=== PATIENT | female | born 1955 | race Caucasian/White ===

== ENCOUNTER 2016-10-23 19:46 | Inpatient (IN) | payer BC ==
[~2016-10-23] VITALS: Ht 172.7 cm; Wt 97.6 kg
--- NOTE | ~2016-10-23 | HP ---
ADMIT: 10/23/2016 RM/LOC: 625 [facility] MR#: [id number] [address] [address] RUI ROBERTJEANNA [address] [facility] [place] [address] History and Physical SEX: F AGE: 61 : 1955 DATE OF SERVICE: CHIEF COMPLAINT: Abdominal pain. HISTORY OF PRESENT ILLNESS: Jeanna is a pleasant 61-year-old female, who normally follows with Julia Monge PA-C in our clinic, presented to the Emergency Department with the above complaints. The patient states that she was walking in the mall when she started having epigastric and lower chest pain. In the Emergency Department for further evaluation, where she was found to have pancreatitis. Lipase greater than 6000. The patient has never had an episode of this before. She denies any alcohol use. No previous history of gallbladder disease. She was started on fluids n.p.o. and pain control. She states pain is better, but still there. No shortness of breath. No other associated symptoms. No fevers or chills. No other complaints this morning. PAST MEDICAL HISTORY: Includes: 1. History of colon polyps. 2. Hyperlipidemia. 3. Hypothyroidism. 4. Migraine headaches. 5. History of malignant breast cancer in 1995. 6. Ductal carcinoma in situ of the left breast in 2010. 7. Infiltrating ductal carcinoma of the left breast with bilateral mastectomy and reconstruction. 8. Osteopenia. 9. Dyslipidemia. OBSTETRICAL HISTORY: She is a 2, para 2. PAST SURGICAL HISTORY: 1. Tonsillectomy. 2. Bilateral breast mastectomy. 3. Hysterectomy with oophorectomy. MEDICATIONS: Please refer to hospital records. She is on TriCor. ALLERGIES: TO ADVIL, STATINS, AND SULFAMETHOXAZOLE. SOCIAL HISTORY: The patient lives with spouse. Nonsmoker and nondrinker. No alcohol. 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 FAMILY HISTORY: Paternal with heart disease and history of acute [place]. Mom with coronary artery disease and osteoarthritis. History of breast cancer. History of colon cancer. REVIEW OF SYSTEMS: A 10-point review of systems was obtained per HPI, otherwise negative. PHYSICAL EXAMINATION: VITAL SIGNS: Blood pressure 127/59, pulse 56, ADMIT: 10/23/2016 RM/LOC: 625 [facility] MR#: [id number] [address] [address] RUI ROBERTJEANNA Isai [address] [place] [address] History and Physical SEX: F AGE: 61 : 1955 respirations 16, temperature 97.9, and 95% on room air. GENERAL: Alert and oriented x3. Does not appear in acute distress. HEENT: Pupils are equal, round, and reactive. Extraocular muscles intact. Throat clear. Trachea midline. HEART: Regular rate and rhythm. No murmurs, rubs, gallops. LUNGS: Clear to auscultation bilaterally. No wheezes or crackles. ABDOMEN: Mild abdominal tenderness in the epigastric area. Otherwise, no rebound or guarding. EXTREMITIES: Trace edema. LABORATORY DATA: Lab show normal CBC. Elevated AST and ALT of 182 and 130 respectively. Lipase now 5651. Triglycerides, normal range. A1c was 5.4. Urine culture negative. Abdomen and pelvis CT did show cholelithiasis, granulomatous disease, diverticulosis, right renal cyst. ASSESSMENT: This is a 61-year-old female with: 1. Acute pancreatitis, possibly secondary to gallstones versus TriCor. 2. Cholelithiasis. 3. Migraine headaches. 4. Dyslipidemia. 5. Obesity. 6. History of breast cancer. 7. Transaminitis. PLAN: We will admit for further workup and management. Supportive cares. N.p.o. SHED BOSS. Fluids. TriCor. Continue watch lipase and advance as tolerated. Likely home by Wednesday, I would think. The patient was in agreement with this plan. Jermaine Sevilla MD/ mansoor JOB #: [id number] CC: Jermaine Sevilla, Attending Physician Julia Monge, Family Physician
[2016-10-29] MEDS ORDERED: TYLENOL DPS325 MG PO (17:49)
[2016-10-29] MEDS ORDERED: NORCO 5-325 TA1 EACH PO (17:49)
[2016-10-29] MEDS ORDERED: INDERAL-DPS40 MG PO (17:49)
[2016-10-29] MEDS ORDERED: EFFEXOR XR75 MG PO (17:49)
[2016-10-29] MEDS ORDERED: VIACTIV SOFT C1 EACH PO (17:50)
[2016-10-29] MEDS ORDERED: FEMARA DPS2.5 MG PO (17:50)
[2016-10-29] MEDS ORDERED: AMERGE2.5 MG PO (17:50)
[2016-10-29] MEDS ORDERED: IMITREX DPS50 MG PO (17:51)
[2016-10-29] MEDS ORDERED: ZYRTEC DPS10 MG PO (17:51)
[2016-10-29] MEDS ORDERED: ZOFRAN4 MG PO (17:52)
--- NOTE | 2016-11-01 20:44 | CO ---
ADMIT: 10/23/2016 RM/LOC: 625 [facility] MR#: [id number] [address] [address] RUI ROBERTJEANNA [address] [place] [address] Consultation SEX: F AGE: 61 : 1955 DATE OF CONSULTATION: 10/26/2016 ATTENDING PHYSICIAN: Jermaine Sevilla CONSULTING PHYSICIAN: Zackary Mitchell MD HISTORY: This is a 61-year-old female, seen in surgical consultation for Dr. Sevilla for pancreatitis. Jeanna , Wednesday night, had the abrupt onset of epigastric pain radiating into her back, which prompted a visit to the ER. She was found to have pancreatitis with a lipase level greater than 6000. She also had mild AST and ALT elevations. She was admitted and had gradual improvement in her epigastric pain until yesterday when her diet was advanced. At that point, she did have some mild nausea. Today, her enzymes did show a bump, however, the lipase again returning to the over 2000 range. She today reports her pain is some there but mostly resolved now. Ultrasound performed did demonstrate cholelithiasis and a common bile duct of 8 mm. PAST MEDICAL HISTORY: Colon polyps, hyperlipidemia, breast cancer, hypothyroidism, migraine headaches, and osteopenia. PAST SURGICAL HISTORY: Tonsillectomy, bilateral mastectomy, hysterectomy with oophorectomy. MEDICATIONS: 1. TriCor. 2. Propranolol. 3. Effexor. 4. Viactiv. 5. Femara. 6. Amerge. 7. Imitrex. 8. Zyrtec. ALLERGIES: ADVIL, STATINS, AND SULFAMETHOXAZOLE. FAMILY HISTORY: Significant for heart disease, breast cancer, and colon cancer. REVIEW OF SYSTEMS: A 10-point review of systems was performed. Abdominal symptoms mentioned in the history of present illness are the only recent change, and the remainder of these systems was negative. PHYSICAL EXAMINATION: GENERAL: Jeanna is alert, oriented, and in no acute distress. VITAL SIGNS: She is afebrile currently, and her vital signs are stable. NEUROLOGIC: Cranial nerves are grossly intact. EYES: Sclerae are anicteric. ADMIT: 10/23/2016 RM/LOC: 625 [facility] MR#: [id number] [address] [address] RUI ROBERTJEANNA [address] [place] [address] Consultation SEX: F AGE: 61 : 1955 NECK: Supple. Trachea is midline. LUNGS: Clear bilaterally. HEART: Regular rate and rhythm. ABDOMEN: Mildly tender in the epigastrium without peritoneal sign or palpable mass. EXTREMITIES: Neurovascularly intact x4. IMPRESSION: Pancreatitis, likely gallstone in origin. PLAN: I had a detailed discussion with Jeanna today regarding gallstone pancreatitis and appropriate management. I did discuss repeating her laboratory studies tomorrow, and if those are improving and if clinically she is symptomatically remains improved, we would plan to tentatively proceed with laparoscopic cholecystectomy with intraoperative cholangiogram. I discussed the risks of that surgery with Jeanna including bleeding, infection, damage to intraabdominal organs, including the biliary tree, conversion to an open procedure, and findings intraoperatively of common duct stone necessitating additional treatment and including possible transfer for ERCP or the need for choledochoscopy and stone retrieval. She understands all of these things as well as the potential, but a partner of mine will be doing the surgery if it does proceed tomorrow. She agrees with that plan. If her laboratory studies are more elevated tomorrow, we would contemplate transfer for preoperative ERCP. Zackary Mitchell MD/ mansoor JOB #: [id number] CC: Jermaine Sevilla, Attending Physician Julia Monge, Family Physician
--- NOTE | 2016-11-03 13:27 | OR ---
ADMIT: 10/23/2016 RM/LOC: 625 [facility] MR#: [id number] [address] [address] RUI DELGADORRAISA [address] [place] [address] Operative/Delivery Room Report SEX: F AGE: 61 : 1955 SURGERY DATE: 10/27/2016 SURGEON: Harrison Bustamante MD PREOPERATIVE DIAGNOSES: 1. Gallstone pancreatitis. 2. Cholecystitis. 3. Cholelithiasis. POSTOPERATIVE DIAGNOSES: 1. Gallstone pancreatitis. 2. Cholecystitis. 3. Cholelithiasis. FINAL PATHOLOGY: Pending. PROCEDURE: Laparoscopic cholecystectomy with intraoperative cholangiogram. RESEARCH AND EVALUATION ANALYST: Emilee Zhao APRN, NP, who was necessary for adequate exposure, retraction, and completion of this case. ESTIMATED BLOOD LOSS: 25 mL or less. ANESTHESIA: Endotracheal tube anesthesia. INDICATION FOR PROCEDURE: Please see H and P. PROCEDURE IN DETAIL: After the risks, benefits, possible complications, and alternatives had been explained and informed consent had been obtained, the patient was taken back to the operating room, underwent general endotracheal tube anesthesia, and the surgical field was prepped and draped in sterile manner. An infraumbilical incision was made, Veress needle was inserted, the abdomen was insufflated with CO2. Once there was adequate insufflation, a 5 mm port was placed, camera was placed at this port site under direct visualization and placed a 10 mm epigastric, two 5 mm right upper quadrant ports. The gallbladder had a few adhesions, slowly cleaned down, dissected the cystic duct coming directly off the gallbladder, appeared rather long, placed a clip on the gallbladder side, opened the cystic duct, introduced a cholangiogram catheter percutaneously in the right upper quadrant and obtained an intraoperative cholangiogram that showed the ducts to fill into the duodenum. I did not see any signs of any significant dilation stones within it. Anatomy was correct, it had a nice long duct, ended up, then removing the clip and the cholangiogram catheter, three clips were placed on the remaining duct and it was divided. Behind this cystic artery, the main one was clipped proximally, distally, and divided. Then, she had kind of a long hepatic ADMIT: 10/23/2016 RM/LOC: 625 [facility] MR#: [id number] [address] [address] RUI ROBERTRAISA [address] [place] [address] Operative/Delivery Room Report SEX: F AGE: 61 : 1955 artery coming up that had 2 little branches coming off it feeding the gallbladder. These were clipped proximally, distally, and divided. The gallbladder was removed from liver bed using electrocautery and Endo Mindy, placed in an EndoCatch bag and removed through the epigastric port site, irrigated and removed as much irrigation as possible. I inspected the liver bed, appeared dry. Clips in good position as seen in pictures #1 and #2. I injected 0.5% Marcaine in the incision site for pain control, closed the fascia of the epigastric port site with an 0-Polysorb suture using the suture passer, and then the skin was all closed with 4-0 Monocryl after all the ports were removed. She tolerated the procedure well. She was being extubated when I left the room. She was in stable and satisfactory condition with all needle and lap counts correct x2. Harrison Bustamante MD/ mansoor JOB #: [id number] CC: Jermaine Sevilla, Attending Physician Julia Monge, Family Physician
--- NOTE | 2016-11-10 08:25 | DS ---
ADMIT: 10/23/2016 RM/LOC: 625 [facility] MR#: [id number] [address] [address] RUI ROBERTRAISA [address] [place] [address] General Discharge Summary SEX: F AGE: 61 : 1955 ADMISSION DATE: 10/23/2016 DISCHARGE DATE: 10/28/2016 FINAL DIAGNOSES: 1. Gallstone pancreatitis. 2. Cholelithiasis. 3. Cholecystitis. 4. Acute pancreatitis. 5. Migraine headaches. 6. Obesity. 7. Gastroesophageal reflux disease. 8. Transaminitis. 9. Fatty liver. 10.Dyslipidemia. CONSULTATIONS: Dr. Mitchell with Surgery. LABS AND IMAGING: Please refer to hospital records. PROCEDURES: Laparoscopic cholecystectomy with intraoperative cholangiogram on 10/27/2016. REASON FOR ADMISSION: Please refer to dictated H and P. Briefly, a very pleasant, 61-year-old female, follows with Julia Monge PA-C, presented to the Emergency Department with complaints of abdominal pain. Found to have pancreatitis with lipase greater than 6000. No significant sources. Was admitted for further workup and management. HOSPITAL COURSE: The patient admitted to telemetry. Routine orders. She was made n.p.o. [employer] pump. Fluids resuscitation. It was unclear, she did have slightly elevated LFTs, thought to be possibly from fatty liver. CT scan did show cholelithiasis. Therefore, we did repeat abdominal ultrasound the following day showing gallstones, possibly mildly dilated biliary tree, but otherwise no acute findings. Significant for fatty liver as well. Lipase trended down as she was made n.p.o. As her diet was gradually increased, her symptoms returned and lipase jumped back up to greater than 2000. Initially, it was thought maybe her pancreatitis could be from her TriCor, but given the above findings and the increasing in symptoms after reintroducing food, it was felt possibly secondary to gallstones. Dr. Mitchell was consulted. Recommended cholecystectomy with intraoperative cholangiogram to check for stone. That procedure was performed on 10/27 without any difficulty. Postoperative course ADMIT: 10/23/2016 RM/LOC: 625 [facility] MR#: [id number] [address] [facility] [address] [place] [id number] RUI ROBERTRAISA [address] [facility] [place] [address] General Discharge Summary SEX: F AGE: 61 : 1955 was benign. On day of discharge, the patient was eating. She was normal. Her pain was well controlled. She felt good and ready to go home. There were no other major events during her hospitalization. DISCHARGE MEDICATIONS: Please refer to hospital record. I did recommend she hold her TriCor for least a month. DISCHARGE INSTRUCTIONS: The patient instructed to eat a bland diet over the next 3-5 days. Follow up with her primary care provider in [address] Mitchell as recommended. Recommended to notify us if worsening symptoms. Discharge activities took approximately 35 minutes. Jermaine Sevilla MD/ mansoor JOB #: [id number] CC: Jermaine Sevilla MD, Attending Physician Julia Monge PA-C, Family Physician
--- NOTE | 2016-11-11 07:35 | ER ---
ADMIT: 10/23/2016 RM/LOC: 625 [facility] MR#: [id number] [address] [facility] [address] [place], [place] [address] RUI ROBERTRAISA [address] [place] [address] Emergency Room Report SEX: F AGE: 61 : 1955 DATE: 10/23/2016 See T-sheet for complete H and P. ADDENDUM: A 61-year-old female, comes in with abdominal pain. This has been going on for 2 to 3 hours, and it was quite severe in nature. She has not had pain like this in the past. She was feeling fine prior to these symptoms occurring earlier this afternoon. She does have a history of breast cancer, but has had a double mastectomy and is cancer free. She has had some mild nausea, but no vomiting and denies any change in bowel or bladder function. Her pain is not made better or worse with anything that she has tried. The patient had diffuse tenderness, but did have some right lower quadrant tenderness also, so we did go ahead and get a CT abdomen and pelvis, which shows normal appendix with slightly distended gallbladder, but otherwise abdominal CT was unremarkable. CBC was normal. CMP showed a potassium of 3.4, AST of 84, lipase of 6816, and urinalysis showed hazy urine, 1+ leukocyte esterase, and 9 white blood cells. Culture was set up for the urine. EKG was done because she did have some epigastric tenderness. When she was triaged, and it showed a sinus quita rate of 56, no signs of ST-elevation or acute [place]. HOSPITAL COURSE: The patient did get an IV started and received morphine and Zofran in the Emergency Department for pain and nausea. Her symptoms were improved, but not completely resolved. We will be admitting the patient for her pancreatitis, and I spoke to Dr. Sevilla, who is writing admission orders. DIAGNOSES: 1. Acute idiopathic pancreatitis. 2. Abdominal pain. 3. Hypokalemia. Feliciano Doan MD/ mansoor JOB #: [id number] CC: Jermaine Sevilla MD, Attending Physician Julia Monge PA-C, Family Physician
== END 2016-10-28 15:00 | disposition home or self-care (01) | DRG 417 ==
LOC: ER 19:46 → 6PED 21:53
PROVIDERS: ADMIT Family Medicine
DX: K80.10 Calculus of gallbladder with chronic cholecystitis without obstruction (principal); K85.10 Biliary acute pancreatitis without necrosis or infection; K76.0 Fatty (change of) liver, not elsewhere classified; E03.9 Hypothyroidism, unspecified; R00.2 Palpitations; E66.9 Obesity, unspecified; E87.6 Hypokalemia; K21.9 Gastro-esophageal reflux disease without esophagitis; E78.5 Hyperlipidemia, unspecified; G43.909 Migraine, unspecified, not intractable, without status migrainosus; M85.80 Other specified disorders of bone density and structure, unspecified site; Z85.3 Personal history of malignant neoplasm of breast; Z90.13 Acquired absence of bilateral breasts and nipples; Z68.33 Body mass index [BMI] 33.0-33.9, adult